=== PATIENT | male | born 1980 | race Two or more races ===

== ENCOUNTER 2018-09-05 11:12 | Emergency (ER) | payer MEDICAID ==
[~2018-09-05] VITALS: Ht 188 cm; Wt 118.0 kg
[~2018-09-05 11:12] MED LIST: BUSP10TA11 PO; CLIN-26 PO; CLON-527 PO; DIVA-81 PO; LANTUS SQ; LURA80TA PO; MYCOL15CR TP; NATE60TA11 PO; ONDA4TAB12 PO; POLY17PO10 PO; SULF500T59 PO; TRAM50TA2 PO; TRAZ300T11 PO
[2018-09-05] MEDS ORDERED: amox tr/potassium clavulanate 875/125mg TAB PO ONE (12:55)
[2018-09-05] MEDS ORDERED: AMOX-422 PO (12:58)
[2018-09-05] MEDS ORDERED: NAPR-56 PO (12:58)
[2018-09-05] MEDS ORDERED: HYDR-4383 PO (12:58)
[2018-09-05] MEDS ORDERED: naproxen 500mg tablet PO ONE (13:00)
[2018-09-05] MEDS ORDERED: HYDROcodone/acetaminophen 5mg/325mg tablet PO ONE (13:00)
[2018-09-05] MEDS ORDERED: fluconazole 150mg tablet PO ONE (13:10)
[2018-09-05 13:29] VITALS: BP 139/90
== END 2018-09-05 13:18 | disposition home or self-care (01) ==
LOC: ER 11:13
DX: K04.7 Periapical abscess without sinus (principal); E11.42 Type 2 diabetes mellitus with diabetic polyneuropathy; F12.90 Cannabis use, unspecified, uncomplicated; Z98.890 Other specified postprocedural states; Z90.89 Acquired absence of other organs; Z88.5 Allergy status to narcotic agent; Z79.899 Other long term (current) drug therapy; Z79.4 Long term (current) use of insulin
CPT/HCPCS: 99284

== ENCOUNTER 2018-10-08 07:20 | Emergency (ER) | payer MEDICAID ==
[~2018-10-08] VITALS: Ht 188 cm; Wt 117.0 kg
[~2018-10-08 07:20] MED LIST changes: +HYDR-4383 PO
[2018-10-08 07:40] VITALS: BP 145/107
[2018-10-08] MEDS ORDERED: sulfamethoxazole/trimethoprim DS (800/160mg) tablet PO ONE (08:20)
[2018-10-08] MEDS ORDERED: LIDOcaine 1% w/epiNEPHrine 1:200,000 30ml vial IM ONE (08:20)
[2018-10-08] MEDS ORDERED: SULF1TAB49 PO (08:55)
== END 2018-10-08 09:25 | disposition home or self-care (01) ==
LOC: ER 07:20
DX: L02.413 Cutaneous abscess of right upper limb (principal); E11.42 Type 2 diabetes mellitus with diabetic polyneuropathy; F41.9 Anxiety disorder, unspecified; F20.9 Schizophrenia, unspecified; F12.90 Cannabis use, unspecified, uncomplicated; Z90.89 Acquired absence of other organs; Z98.890 Other specified postprocedural states; Z88.8 Allergy status to other drugs, medicaments and biological substances; Z88.5 Allergy status to narcotic agent; Z79.4 Long term (current) use of insulin; Z79.899 Other long term (current) drug therapy
CPT/HCPCS: 10060; 99283

== ENCOUNTER 2018-10-22 12:56 | Emergency (ER) | payer MEDICAID ==
[~2018-10-22] VITALS: Ht 188 cm; Wt 118.0 kg
[2018-10-22 13:34] VITALS: BP 130/78
--- NOTE | 2018-10-22 14:04 | NUR ---
pt is bizarre in his behavior and gets defensive when asked if he has used alcohol or drugs today. pt has the smell of marijuana on him.
[2018-10-22 15:16] LABS: BASOPHILS % (AUTO) 0.3 % (0-1); EOSINOPHILS # (AUTO) 0.1 X10'3 (0-0.9); EOSINOPHILS % (AUTO) 0.7 % (0-6); HEMATOCRIT 41.4 % (42.0-52.0); LYMPHOCYTES # (AUTO) 1.1 X10'3 (1.1-4.8); LYMPHOCYTES % (AUTO) 12.5 % (21-51); MEAN CORPUSCULAR HEMOGLOBIN 27.4 PG (27.0-31.0); MEAN CORPUSCULAR HGB CONC 33.9 g/dL (33.0-36.5); MEAN PLATELET VOLUME 7.8 FL (7.4-10.4); MONOCYTES # (AUTO) 0.8 X10'3 (0-0.9); MONOCYTES % (AUTO) 9.1 % (2-12); NEUTROPHILS # (AUTO) 6.8 X10'3 (1.8-7.7); NEUTROPHILS % (AUTO) 77.4 % (42-75); PLATELET COUNT 231 X10'3 (140-440); RED BLOOD COUNT 5.12 X10'6 (4.70-6.10); RED CELL DISTRIBUTION WIDTH 13.9 % (11.5-14.5); WHITE BLOOD COUNT 8.8 X10'3 (4.5-11.0)
[2018-10-22 15:34] LABS: ALANINE AMINOTRANSFERASE 24 U/L (12-78); ALBUMIN 3.6 G/DL (3.4-5.0); ALBUMIN/GLOBULIN RATIO 0.9 (1.1-1.5); ALKALINE PHOSPHATASE 75 IU/L (46-116); ANION GAP 10 (8-16); ASPARTATE AMINO TRANSFERASE 17 U/L (10-37); BILIRUBIN,TOTAL 1.1 MG/DL (0.1-1.0); BLOOD UREA NITROGEN 18 MG/DL (7-18); BUN/CREATININE RATIO 16.7 (5.4-32.0); CALCIUM 8.9 MG/DL (8.5-10.1); CHLORIDE 102 MMOL/L (99-107); CREATININE 1.08 MG/DL (0.60-1.10); GLUCOSE 313 MG/DL (70-104); SODIUM 139 MMOL/L (135-145); TOTAL CARBON DIOXIDE 26.9 MMOL/L (24-32); TOTAL PROTEIN 7.6 G/DL (6.4-8.2); eGFR 76 ML/MIN
[2018-10-22 15:37] LABS: TROPONIN I < 0.04 NG/ML (0.0-0.05)
--- NOTE | 2018-10-22 15:42 | NUR ---
pt is talking on phone. pt in no obvious distress. having a full conversation with someone.
[2018-10-22] MEDS ORDERED: TRAM50TA2 PO (15:57)
[2018-10-22] MEDS ORDERED: CEPH-572 PO (15:57)
== END 2018-10-22 16:30 | disposition home or self-care (01) ==
LOC: ER 12:57
DX: S91.302A Unspecified open wound, left foot, initial encounter (principal); E11.65 Type 2 diabetes mellitus with hyperglycemia; R55 Syncope and collapse; M25.461 Effusion, right knee; E11.42 Type 2 diabetes mellitus with diabetic polyneuropathy; F41.9 Anxiety disorder, unspecified; F20.9 Schizophrenia, unspecified; F17.200 Nicotine dependence, unspecified, uncomplicated; F12.90 Cannabis use, unspecified, uncomplicated; Z90.89 Acquired absence of other organs; Z98.890 Other specified postprocedural states; Z88.8 Allergy status to other drugs, medicaments and biological substances; Z88.5 Allergy status to narcotic agent; Z79.4 Long term (current) use of insulin; Z79.899 Other long term (current) drug therapy; X58.XXXA Exposure to other specified factors, initial encounter; Y93.89 Activity, other specified; Y92.89 Other specified places as the place of occurrence of the external cause; Y99.8 Other external cause status
CPT/HCPCS: 36415; 71045; 73564; 80053; 84484; 85025; 93005; 99284

== ENCOUNTER 2018-10-25 17:48 | Emergency (ER) | payer MEDICAID ==
[~2018-10-25] VITALS: Ht 188 cm; Wt 118.2 kg
[~2018-10-25 17:48] MED LIST changes: +CEPH-572 PO
[2018-10-25 19:21] VITALS: BP 136/87
[2018-10-25] MEDS ORDERED: fluconazole 100mg tablet PO ONE (20:05)
[2018-10-25] MEDS ORDERED: FLUC100T PO (20:08)
[2018-10-25] MEDS ORDERED: CLOT15CR73 TP (20:08)
--- NOTE | 2018-10-25 20:20 | NUR ---
PT UPSET AND SWEARING WHEN TRYING TO DISCHARGE AND GIVE FIRST DOSE DIFLUCAN DUE TO US "NOT KNOWING ITS A FUNGAL INFECTION WITHOUT BLOOD TESTS". REQUESTED PAIN MEDICATION BEFORE LEAVING. ANNE MARIE LYNCH ORDERED TYLENOL. PT REFUSED MEDICATION AND WAS SWEARING AND YELLING. PT WAS ASKED TO LEAVE IF HE CONTINUED TO DO SO AND HE TOOK HIS D/C PAPERS WITH RX AND WALKED OUT WITH TWO RN TO LOBBY. PT DID NOT SIGN D/C PAPERS
[2018-10-25] MEDS ORDERED: acetaminophen 325mg tablet PO ONE (20:25)
== END 2018-10-25 20:30 | disposition home or self-care (01) ==
LOC: ER 17:48
DX: B35.3 Tinea pedis (principal); E11.42 Type 2 diabetes mellitus with diabetic polyneuropathy; F12.90 Cannabis use, unspecified, uncomplicated; Z98.890 Other specified postprocedural states; Z90.89 Acquired absence of other organs; Z88.5 Allergy status to narcotic agent; Z79.899 Other long term (current) drug therapy; Z79.4 Long term (current) use of insulin
CPT/HCPCS: 99283